=== PATIENT | female | born 1970 | race Two or more races ===

== ENCOUNTER → 2024-10-29 | Outpatient (CLI) | payer MEDICAID, SELFPAY ==
--- NOTE | 2024-10-29 07:30 | XR_ITS ---
Examination: Breast ultrasound, unilateral, right complete Date and time of exam: October 29, 2024 0730 hours INDICATIONS: Patient states right breast pain and palpable mass in the bilateral axillary region one year, family history breast cancer Technique: Real-time franco scale ultrasonographic imaging performed right breast including all 4 quadrants as well as nipple retroareolar and axillary region. Findings: No cystic or solid right breast mass 17 x 33 mm right axillary lymph node IMPRESSION: BI-RADS Category 2: Benign findings
--- NOTE | 2024-10-29 08:00 | XR_ITS ---
Examination: Diagnostic digital mammography, bilateral Computer aided detection 3-D breast Tomosynthesis, bilateral Date and time of exam: October 29, 2024 0741 hours Compared to mammograms dating to August 20, 2014 INDICATIONS: Palpable lumps in both breasts Technique: Nonmagnified MLO, CC views of the breasts to been obtained, reconstructed from 3-D Tomosynthesis images. R2 computer aided detection program utilized for evaluation of suspicious masses and/or abnormal calcifications. 3-D Tomosynthesis images obtained. Findings: The breasts are heterogeneously dense, which may obscure small masses Benign calcifications. No interval suspicious masses Impression: BI-RADS Category 2: Benign findings.
== END | disposition home or self-care (01) ==
LOC: CDIM 07:06
PROVIDERS: PCP Family Medicine
DX: R92.323 Mammographic fibroglandular density, bilateral breasts (principal); Z80.3 Family history of malignant neoplasm of breast
CPT/HCPCS: 76641; 77062; 77066; G0279